=== PATIENT | male | born 1975 | race African-American/Black ===

== ENCOUNTER 2024-07-21 17:37 | Inpatient (IN) | payer BC, OTHER ==
[~2024-07-21] VITALS: Ht 162.6 cm; Wt 103.6 kg
--- NOTE | 2024-07-21 17:54 | ED.PDOC ---
History of Present Illness HPI Comments 49-year-old male with PMHx DM, Seizures, CVA presents with a chief complaint of abdominal pain and dysuria. Patient states that his pain is localized to his suprapubic region, nonradiating, rates his pain a 8/10. Patient mentions that the only urinary symptom he is having is pain upon urination. Patient denies burning, hematuria, or retention. Patient also mentions that he feels a pinch sensation in his testicle. Time Seen by MD: 17:45 Reviewed Notes: Nurses Notes, Medications, Allergies Allergies: Coded Allergies: NO KNOWN ALLERGIES (Unverified , 07/21/24) Information Source: Patient Mode of Arrival: Ambulatory Severity: Moderate Timing: Days Duration: Since onset Prehospital treatment: None Past Medical History PAST MEDICAL HISTORY: CVA, DM, Seizures Surgical History: Denies all surgeries Family History Family History: Reviewed,noncontributory to illness Social History Smoker: Non-Smoker Alcohol: Denies ETOH Use Drugs: Denies Drug Use Lives In: Home Constitutional: denies: chills, diaphoresis, fatigue, fever, malaise, sweats, weakness, others EENTM: denies: blurred vision, double vision, ear bleeding, ear discharge, ear drainage, ear pain, ear ringing, eye pain, eye redness, hearing loss, mouth pain, mouth swelling, nasal discharge, nose bleeding, nose congestion, nose pain, photophobia, tearing, throat pain, throat swelling, voice changes, others Respiratory: denies: cough, hemoptysis, orthopnea, SOB at rest, shortness of breath, SOB with excertion, stridor, wheezing, others Cardiovascular: denies: chest pain, dizzy spells, diaphoresis, Dyspnea on exertion, edema, irregular heart beat, left arm pain, lightheadedness, palpitations, PND, syncope, others Gastrointestinal: reports: abdominal pain; denies: abdomen distended, blood streaked bowels, constipated, diarrhea, dysphagia, difficulty swallowing, hematemesis, melena, nausea, poor appetite, poor fluid intake, rectal bleeding, rectal pain, vomiting, others Genitourinary: reports: dysuria; denies: burning, flank pain, frequency, hematuria, incontinence, penile discharge, penile sore, pain, testicle pain, testicle swelling, urgency, others Neurological: denies: dizziness, fainting, headache, left sided numbness, left sided weakness, numbness, paresthesia, pre-existing deficit, right sided numbness, right sided weakness, seizure, speech problems, tingling, tremors, weakness, others Musculoskeletal: denies: back pain, gout, joint pain, joint swelling, muscle pain, muscle stiffness, neck pain, others Integumetry: denies: bruises, change in color, change in hair/nails, dryness, laceration, lesions, lumps, rash, wounds, others Allergic/Immunocompromised: denies: Difficulty Healing, Frequent Infections, Hives, Itching, others Hematologic/Lymphatic: denies: anemia, blood clots, easy bleeding, easy bruising, swollen glands, others Endocrine: denies: excessive hunger, excessive sweating, excessive thirst, excessive urination, flushing, intolerance to cold, intolerance to heat, unexplained weight gain, unexplained weight loss, others Psychiatric: denies: anxiety, bipolar disorder, depression, hopeless, panic disorder, schizophrenia, sleepless, suicidal, others All Other Systems: Reviewed and Negative Physical Exam General Appearance: Moderate Distress HEENT: Normal ENT Inspection, Pharynx Normal, TMs Normal Neck: Full Range of Motion, Non-Tender, Normal, Normal Inspection Respiratory: Chest Non-Tender, Lungs Clear, No Accessory Muscle Use, No Respiratory Distress, Normal Breath Sounds Cardiovascular: No Edema, No JVD, No Murmur, No Gallop, Normal Peripheral Pulses, Regular Rate/Rhythm Breast Exam: Deferred Gastrointestinal: No Organomegaly, No Pulsatile Mass, Normal Bowel Sounds, Soft, Suprapubic, Tenderness Genitalia: Deferred Pelvic: Deferred Rectal: Deferred Extremities: No calf tenderness, Normal capillary refill, Normal inspection, Normal range of motion, Non-tender, No pedal edema Musculoskeletal : Apperance: Normal Neurologic: Alert, 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 Was a procedure done?: No Differential Dx Considerations may include: Colitis, diverticulitis, UTI X-Ray, Labs, Meds, VS Vital Signs Date Time Temp Pulse Resp B/P (MAP) Pulse Ox O2 Delivery O2 Flow Rate FiO2 07/21/24 17:56 98.3 87 18 136/83 (100) 97 98.3 Lab Test 07/21/24 18:19 07/21/24 17:56 Range/Units White Blood Count 6.0 4.4-10.8 10^3/uL Red Blood Count 5.35 4.5-5.90 10^6/uL Hemoglobin 16.8 13.5-17.5 g/dL Hematocrit 49.8 41.0-53.0 % Mean Corpuscular Volume 93.2 80.0-100.0 fL Mean Corpuscular Hemoglobin 31.4 28.0-32.0 pg Mean Corpuscular Hemoglobin Concent 33.7 32.0-36.0 g/dL Red Cell Distribution Width 15.5 H 11.8-14.3 % Platelet Count 221 140-450 10^3/uL Mean Platelet Volume 7.3 6.9-10.8 fL Neutrophils (%) (Auto) 51.2 37.0-80.0 % Lymphocytes (%) (Auto) 36.9 10.0-50.0 % Monocytes (%) (Auto) 9.3 0.0-12.0 % Eosinophils (%) (Auto) 2.0 0.0-7.0 % Basophils (%) (Auto) 0.6 0.0-2.0 % Neutrophils # (Auto) 3.1 1.6-8.6 10 ^3/uL Lymphocytes # (Auto) 2.2 0.4-5.4 10 ^3/uL Monocytes # (Auto) 0.6 0-1.3 10 ^3/uL Eosinophils # (Auto) 0.1 0-0.8 10 ^3/uL Basophils # (Auto) 0 0-0.2 10 ^3/uL Nucleated Red Blood Cells 0.1 % Sodium Level 141 136-145 mmol/L Potassium Level 4.2 3.5-5.1 mmol/L Chloride Level 108 H 98-107 mmol/L Carbon Dioxide Level 27 20-31 mmol/L Anion Gap 6 5-15 Blood Urea Nitrogen 13 9-23 mg/dL Creatinine 0.92 0.700-1.30 mg/dL Glomerular Filtration Rate Calc 102 >90 mL/min BUN/Creatinine Ratio 14.1 10.0-20.0 Serum Glucose 159 H 74-106 mg/dL Calcium Level 10.0 8.7-10.4 mg/dL Total Bilirubin 0.4 0.2-1.0 mg/dL Aspartate Amino Transferase (AST) 10 L 13-40 U/L Alanine Aminotransferase (ALT) 13 7-40 U/L Alkaline Phosphatase 56 46-116 U/L Total Protein 7.4 5.7-8.2 g/dL Albumin 4.5 3.2-4.8 g/dL Lipase 29 12-53 U/L Urine Color Yellow Yellow Urine Clarity Clear Clear Urine pH 6.0 5.0-9.0 Urine Specific [place] 1.030 1.001-1.035 Urine Protein Negative Negative Urine Ketones Trace Negative Urine Blood Negative Negative /uL Urine Nitrite Negative Negative Urine Bilirubin Negative Negative Urine Urobilinogen 2 H Negative mg/dL Urine Leukocyte Esterase Negative Negative /uL Urine RBC 1 0 - 3 /hpf Urine Microscopic WBC 1 0-3 /HPF Urine Squamous Epithelial Cells None seen <5 /hpf Urine Bacteria None seen None Seen /hpf Urine Mucus Few None Seen Urine Glucose Trace Normal mg/dL Abdomen/Pelvis CT Scan Impression: 1. Mild wall thickening of the distal descending colon and sigmoid colon with adjacent fat stranding, concerning for colitis of infectious or inflammatory etiology. No bowel obstruction. No free air. No regional fluid collection identified to suggest abscess. The patient was started on Flagyl 500 mg IV piggyback The urine test is negative The patient's CBC is within normal limits The chemistry panel is within normal limits The patient was still complaining of pain and was given morphine and Zofran The patient was being admitted Images Reviewed?: Images reviewed and evaluated by me Time of 1ST Reevaluation: 18:15 Reevaluation 1ST: Unchanged Patient Education/Counseling: Diagnosis, Treatment, Prognosis Family Education/Counseling: No Family Present Departure 1 Departure Time of Disposition: 19:13 Impression: Primary Impression: Intractable abdominal pain Additional Impression: Acute colitis Disposition: 09 ADMITTED INPATIENT Admit to: Med Surg Condition: Fair Critical Care Note Critical Care Time?: No Stability Stability form required: Yes Unstable for transfer: ED Physician Assesment (Clinical assesment) Heart Score Heart Score: Heart Score Response (Comments) Value History N/A 0 EKG N/A 0 Age N/A 0 Risk Factors N/A 0 Troponin N/A 0 Total 0 I personally scribed for HELADIO PETERSON MD ([email or web address]) on 07/21/24 at 17:54. Electronically submitted by Edward Duran ([email or web address]). I personally scribed for HELADIO PETERSON MD ([email or web address]) on 07/21/24 at 19:11. Electronically submitted by Edward Duran ([email or web address]). HELADIO PETERSON MD Jul 21, 2024 17:54
[2024-07-21 18:35] LABS: Basophils # (auto) 0 10 ^3/uL (0-0.2); Basophils % (auto) 0.6 % (0.0-2.0); Eosinophils # (auto) 0.1 10 ^3/uL (0-0.8); Hematocrit 49.8 % (41.0-53.0); Hemoglobin 16.8 g/dL (13.5-17.5); Lymphocytes # (auto) 2.2 10 ^3/uL (0.4-5.4); Lymphocytes % (auto) 36.9 % (10.0-50.0); Mean Corpuscular Hemoglobin 31.4 pg (28.0-32.0); Mean Corpuscular Hgb Conc. 33.7 g/dL (32.0-36.0); Mean Corpuscular Volume 93.2 fL (80.0-100.0); Monocytes # (auto) 0.6 10 ^3/uL (0-1.3); Monocytes % (auto) 9.3 % (0.0-12.0); Neutrophils # (auto) 3.1 10 ^3/uL (1.6-8.6); Neutrophils % (auto) 51.2 % (37.0-80.0); Nucleated Red Blood Cells % 0.1 %; Platelet Count (auto) 221 10^3/uL (140-450); Red Blood Cells 5.35 10^6/uL (4.5-5.90); Red Cell Distribution Width 15.5 % (11.8-14.3)
[2024-07-21 18:47] LABS: Alanine Aminotransferase 13 U/L (7-40); Albumin 4.5 g/dL (3.2-4.8); Alkaline Phosphatase 56 U/L (46-116); Anion Gap 6 (5-15); BUN/Creatinine Ratio 14.1 (10.0-20.0); Bilirubin, Total 0.4 mg/dL (0.2-1.0); Blood Urea Nitrogen 13 mg/dL (9-23); Carbon Dioxide 27 mmol/L (20-31); Lipase 29 U/L (12-53); Potassium 4.2 mmol/L (3.5-5.1); Sodium 141 mmol/L (136-145); Total Protein 7.4 g/dL (5.7-8.2)
[2024-07-21 18:48] LABS: Aspartate Aminotransferase 10 U/L (13-40); Chloride 108 mmol/L (98-107); Glucose 159 mg/dL (74-106)
[2024-07-21 18:57] LABS: Urine Bacteria None Seen /hpf (None Seen)
--- NOTE | 2024-07-21 19:01 | DVH ---
Exam: CT CT AB PEL WO CON-NO ORAL OR IV History: pain Comparison Study: None Technique: Multidetector spiral CT of the abdomen was performed from lung bases to pubic symphysis. I maging was performed without IV contrast. Axial, coronal and sagittal multiplanar reformats were obta ined from the axial data set by the technologist. Radiation Dose : 1. Abdomen/Pelvis: CTDIvol 24.8 mGy, DLP 1376.82 mGy*cm. Findings: Evaluation of solid organs is limited due to lack of intravenous contrast use. Lung Bases: No acute or significant lung base finding. Normal heart size. No pleural or pericardial effusion. Liver: The liver is normal in size. No focal lesions. Gallbladder and Biliary Tree: Unremarkable Spleen: Unremarkable Pancreas: The pancreas is grossly normal in appearance. Adrenal Glands: Unremarkable Kidneys: Kidneys are grossly normal without calculi or hydronephrosis. Bladder: Grossly unremarkable for degree of distention. Bowel: Mild wall thickening of the distal descending colon and sigmoid colon with adjacent fat stran ding. The bowel loops are nondilated. The appendix is not visualized; however, no secondary findings of acute appendicitis identified. Peritoneum and Retroperitoneum: No ascites, free air or focal fluid collection. Lymphadenopathy: No lymphadenopathy. Abdominal Wall: Unremarkable. Vasculature: The visualized abdominal aorta is normal in size and caliber. Evaluation of abdominal a nd pelvic vessels is limited due to lack of intravenous contrast. Pelvic Organs: Unremarkable Musculoskeletal: No aggressive focal bony lesions, acute fractures or dislocation. Degenerative fischer es. IMPRESSION: 1. Mild wall thickening of the distal descending colon and sigmoid colon with adjacent fat stranding, concerning for colitis of infectious or inflammatory etiology. No bowel obstruction. No free air. N o regional fluid collection identified to suggest abscess. Radiation optimization: All CT scans at this facility use at least one of these dose optimization gaviota hniques: automated exposure control mA and/or kV adjustment per patient size (includes targeted exam s where dose is matched to clinical indication) or iterative reconstruction.
[2024-07-21 19:02] LABS: Urine Blood Negative /uL (Negative); Urine Clarity Clear (Clear); Urine Color Yellow (Yellow); Urine Mucus FEW (None Seen); Urine Protein, UAD Negative (Negative); Urine Squamous Epithelial Cell None Seen /hpf (<5); Urine Urobilinogen 2 mg/dL (Negative); Urine WBC 1 /HPF (0-3)
[2024-07-21 19:34] VITALS: PULSE 88; RESP 14; O2SAT 97
[2024-07-21] MEDS: metroNIDAZOLE 500MG/100ML 100 ML IV ONE ×2 (19:39→22:28)
[2024-07-21 20:23] VITALS: PULSE 82; RESP 18; O2SAT 95
[2024-07-21] MEDS ORDERED: ONDANSETRON HCL 4 MG/2 ML VIAL IV PRN (20:45)
[2024-07-21] MEDS ORDERED: ACETAMINOPHEN 325 MG TAB PO PRN (20:45)
--- NOTE | 2024-07-21 21:58 | DVHHPRES ---
History of Present Illness Resident Creating Document: CUAUHTEMOC GONZALEZ RESDIENT History of Present Illness This is a 49-year-old male mild intellectual disability, with past medical history of prediabetes, seizure, and CVA came to the hospital due to abdominal pain. Per patient he has an intermittent abdominal pain since six-month which has recently increased. He also reports lower abdominal pain, hesitancy, dysuria and constipation. He denies fever, nausea, vomiting, shortness of breath, diarrhea. PMHx: Mild intellectual disability, prediabetes, seizure (since 16 years old), CVA (per patient he had CVA during with residual left-sided motor deficits), post term (was 10 month old during ) PSHx: After he was not able to tolerate oral intake and underwent abdominal surgery on 3rd day with partial small-bowel resection Family history: Noncontributory Social history: Mild intellectual disability, do not work, independent in daily life activity but the brother helps him. Ex methamphetamine user, smokes marijuana and cigarettes, lives with the brother at home Home medication: Metformin 500 mg, Depakote 500 mg Allergic history: No known allergies Review of Systems Review of Systems General: patient denies fever, fatigue, weaknes, sweating, any recent changes in appetite and weight HEENT: No headaches, visiual changes, hearing loss, tinnitus, nasal congestion and discharge, and sore throat. Cardiovascular: Denies chest pain, palpitations, dyspnea on exertion, orthopnea, or claudication. Respiratory: No cough, and wheezing. Gastrointestinal: Reports abdominal pain, Genitourinary: Reports hesitancy and dysuria Endocrine: No heat or cold intolerance, polydipsia, polyuria, and polyphagia. Neurological: No dizziness, extremity weakness and numbness, tremors, gait disturbance, seizures, and memory impairment. Psychiatric: Denies depression, anxiety,or insomnia. Musculoskeletal: Reports lower back pain Skin: No rashes, itching, skin lesion, changes in hair, nail, skin texture and breast. Hematologic/Lymphatic: Denies easy bruising, bleeding tendencies, or lymph node enlargement. Allergies: Coded Allergies: NO KNOWN ALLERGIES (Unverified , 07/21/24) Exam Vital Signs Vital Signs Date Time Temp Pulse Resp B/P (MAP) Pulse Ox O2 Delivery O2 Flow Rate FiO2 07/21/24 20:23 82 18 95 Room Air* 0 21 07/21/24 20:10 97.4 135/92 (106) 97.4 Exam General Appearance: Alert, Oriented X3, Cooperative, No acute distress HEENT: Atraumatic, PERRLA, EOMI, Mucous membrane moist/pink Respiratory: Clear to auscultation, Normal air movement Cardiovascular: Regular rate, Normal S1, Normal S2, No murmurs, no chest wall tenderness Abdominal: Mild suprapubic tenderness Extremities: Left upper limb power 3/5 Skin: No rashes, No breakdown, No significant lesion Neuro: Normal gait, Normal speech, Strength at 5/5 X4 ext, Normal tone, Sensation intact, Cranial nerves 3-12 NL, Reflexes 2+ Psych/Mental Status: Mental status NL, Mood NL Labs/Xrays Labs Test 07/21/24 18:19 07/21/24 17:56 Range/Units White Blood Count 6.0 4.4-10.8 10^3/uL Red Blood Count 5.35 4.5-5.90 10^6/uL Hemoglobin 16.8 13.5-17.5 g/dL Hematocrit 49.8 41.0-53.0 % Mean Corpuscular Volume 93.2 80.0-100.0 fL Mean Corpuscular Hemoglobin 31.4 28.0-32.0 pg Mean Corpuscular Hemoglobin Concent 33.7 32.0-36.0 g/dL Red Cell Distribution Width 15.5 H 11.8-14.3 % Platelet Count 221 140-450 10^3/uL Mean Platelet Volume 7.3 6.9-10.8 fL Neutrophils (%) (Auto) 51.2 37.0-80.0 % Lymphocytes (%) (Auto) 36.9 10.0-50.0 % Monocytes (%) (Auto) 9.3 0.0-12.0 % Eosinophils (%) (Auto) 2.0 0.0-7.0 % Basophils (%) (Auto) 0.6 0.0-2.0 % Neutrophils # (Auto) 3.1 1.6-8.6 10 ^3/uL Lymphocytes # (Auto) 2.2 0.4-5.4 10 ^3/uL Monocytes # (Auto) 0.6 0-1.3 10 ^3/uL Eosinophils # (Auto) 0.1 0-0.8 10 ^3/uL Basophils # (Auto) 0 0-0.2 10 ^3/uL Nucleated Red Blood Cells 0.1 % Sodium Level 141 136-145 mmol/L Potassium Level 4.2 3.5-5.1 mmol/L Chloride Level 108 H 98-107 mmol/L Carbon Dioxide Level 27 20-31 mmol/L Anion Gap 6 5-15 Blood Urea Nitrogen 13 9-23 mg/dL Creatinine 0.92 0.700-1.30 mg/dL Glomerular Filtration Rate Calc 102 >90 mL/min BUN/Creatinine Ratio 14.1 10.0-20.0 Serum Glucose 159 H 74-106 mg/dL Calcium Level 10.0 8.7-10.4 mg/dL Total Bilirubin 0.4 0.2-1.0 mg/dL Aspartate Amino Transferase (AST) 10 L 13-40 U/L Alanine Aminotransferase (ALT) 13 7-40 U/L Alkaline Phosphatase 56 46-116 U/L Total Protein 7.4 5.7-8.2 g/dL Albumin 4.5 3.2-4.8 g/dL Lipase 29 12-53 U/L Urine Color Yellow Yellow Urine Clarity Clear Clear Urine pH 6.0 5.0-9.0 Urine Specific [place] 1.030 1.001-1.035 Urine Protein Negative Negative Urine Ketones Trace Negative Urine Blood Negative Negative /uL Urine Nitrite Negative Negative Urine Bilirubin Negative Negative Urine Urobilinogen 2 H Negative mg/dL Urine Leukocyte Esterase Negative Negative /uL Urine RBC 1 0 - 3 /hpf Urine Microscopic WBC 1 0-3 /HPF Urine Squamous Epithelial Cells None seen <5 /hpf Urine Bacteria None seen None Seen /hpf Urine Mucus Few None Seen Urine Glucose Trace Normal mg/dL Assessment/Plan Assessment/Plan Colitis Possible urethritis Abdominal CT scan shows, mild wall thickening of the distal descending colon and sigmoid colon with adjacent fat stranding Clear liquid diet Empiric antibiotic, Rocephin and Flagyl Pain control Stool study Prediabetes History of seizure, continue Depakote History of CVA with left-sided residual deficit Obesity, grade 2 Dyslipidemia DIET: Clear liquid the DVT PROPHYLAXIS: Lovenox CODE STATUS: Goal of care for more than 18 minutes, full code DISPOSITION: Med/surge Patient's status and plan discussed with the patient patient's brother through the phone. Case discussed with Dr. Issa. Plan discussed with: Patient, Other (RN) My Orders Orders - CUAUHTEMOC GONZALEZ RESDIESTEBAN Procedure Category Date Status Time Admit ADMIT 07/21/24 Transmitted 20:37 Code Status CODE 07/21/24 Transmitted 20:37 Vital Signs ANJALI 07/21/24 Transmitted 20:37 Review Orders With [facility] 07/21/24 Transmitted Adm.Md 20:37 Acetaminophen Tablet PHA 07/21/24 Transmitted (Tylenol Tablet) 20:45 Notify Md Of Changes [facility] 07/21/24 Transmitted From Base 20:37 Advance Directive ANJALI 07/21/24 Transmitted 20:37 Lipid Panel LAB 07/21/24 Transmitted 20:37 Patient Condition ORDERS 07/21/24 Transmitted 20:37 Allergies ANJALI 07/21/24 Transmitted 20:37 Hydrocodone-Acet PHA 07/21/24 Transmitted 5/325mg Tab ([place] 20:45 Ondansetron Hcl PHA 07/21/24 Transmitted (Zofran) 20:45 Drug Screen LAB 07/21/24 Verified 20:37 Hemoglobin A1c LAB 07/21/24 Verified 20:37 Lovenox 40mg PHA 07/22/24 Verified 10:00 Stat Ekg For Chest [facility] 07/21/24 Verified Pain 20:37 Notify Md Of Changes [facility] 07/21/24 Verified From Base 20:37 Thyroid Stimulating LAB 07/21/24 Transmitted Hormone 20:37 Clear Liq Diet DIET 07/22/24 Verified Breakfast Basic Metabolic Panel LAB 07/22/24 Verified 04:00 Complete Blood Count LAB 07/22/24 Verified 04:00 Stool Wbc LAB 07/21/24 Transmitted 20:37 Metronidazole Ivpb PHA 07/21/24 Verified Flagyl 22:00 Metronidazole Ivpb PHA 07/21/24 Verified Flagyl 20:45 Ceftriaxone Ivpb PHA 07/22/24 Verified Rocephin 09:00 Ceftriaxone Ivpb PHA 07/21/24 Verified Rocephin 20:45 Date of Service: Jul 21, 2024 Billing Provider: DAPHNIE ISSA MD Common Visit Codes: [id number] INP/OBS CARE (HIGH) CUAUHTEMOC GONZALEZ RESDIENT Jul 21, 2024 21:58 DAPHNIE ISSA MD Jul 22, 2024 10:59
[2024-07-21 22:22] LABS: Cholesterol 196 mg/dL (< 200); HDL Cholesterol 48 mg/dL (40-59); LDL Cholesterol 126 mg/dL (< 100); Triglycerides 188 mg/dL (< 150)
[2024-07-21] MEDS: cefTRIAXone 1GM/50ML D5W 50 ML IV ONE (22:28)
[2024-07-21 22:45] LABS: Cannabinoid Screen, Urine Neg (NEGATIVE)
[2024-07-21 22:47] LABS: Amphetamine Screen, Urine Neg (NEGATIVE); Barbiturate Scree,Urine Neg (NEGATIVE); Benzodiazephine Screen, Urine Neg (NEGATIVE); Cocaine Screen, Urine Neg (NEGATIVE); Opiate Scree,Urine Neg (NEGATIVE); Phencyclidine Screen, Urine Neg (NEGATIVE)
[2024-07-21 23:15] LABS: Erythrocyte Sedimentation Rate 1 mm/hr (0-20)
[2024-07-21] MEDS: LACTATED RINGER'S 1,000 ML IV SCH (23:44)
[2024-07-21] MEDS ORDERED: FLUT50SP NAS (23:49)
[2024-07-21] MEDS ORDERED: RISP3TAB44 PO (23:49)
[2024-07-21] MEDS ORDERED: METF-372 PO (23:52)
[2024-07-21] MEDS ORDERED: DIVA1TAB59 PO (23:52)
[2024-07-22] VITALS (7 sets, daily range): BP systolic 95–128; BP diastolic 67–89; PULSE 68–79; RESP 16–18; TEMP 96.7–98.6; O2SAT 92–97
[2024-07-22 02:07] LABS: Lactic Acid w/Reflex 2.2 mmol/L (0.4-2.0)
[2024-07-22] MEDS: SODIUM CHLORIDE 0.9% 1,000 ML IV ONE (02:20)
[2024-07-22] MEDS: metroNIDAZOLE 500MG/100ML 100 ML IV SCH (06:35)
[2024-07-22] MEDS: ENOXAPARIN SOD 40 MG/0.4 ML SYRINGE SC SCH (09:46)
[2024-07-22] MEDS: HYDROcodone-ACET 5/325MG TAB PO PRN (09:46)
[2024-07-22] MEDS: risperiDONE 1 MG TAB PO SCH (09:47)
[2024-07-22] MEDS ORDERED: FLUTICASONE PROP NASAL SPR 0.05 % (50MCG) 16GM EACHNOSTRI SCH (10:00)
[2024-07-22 10:26] LABS: Basophils # (auto) 0 10 ^3/uL (0-0.2); Basophils % (auto) 0.9 % (0.0-2.0); Eosinophils # (auto) 0.2 10 ^3/uL (0-0.8); Eosinophils % (auto) 3.8 % (0.0-7.0); Hematocrit 46.6 % (41.0-53.0); Hemoglobin 15.7 g/dL (13.5-17.5); Lymphocytes # (auto) 2.6 10 ^3/uL (0.4-5.4); Lymphocytes % (auto) 48.7 % (10.0-50.0); Mean Corpuscular Hemoglobin 31.3 pg (28.0-32.0); Mean Corpuscular Hgb Conc. 33.8 g/dL (32.0-36.0); Mean Corpuscular Volume 92.8 fL (80.0-100.0); Monocytes # (auto) 0.4 10 ^3/uL (0-1.3); Monocytes % (auto) 8.1 % (0.0-12.0); Neutrophils % (auto) 38.5 % (37.0-80.0); Nucleated Red Blood Cells % 0.2 %; Platelet Count (auto) 198 10^3/uL (140-450); Red Blood Cells 5.02 10^6/uL (4.5-5.90); Red Cell Distribution Width 15.4 % (11.8-14.3); White Blood Cell 5.3 10^3/uL (4.4-10.8)
[2024-07-22 10:56] LABS: Alanine Aminotransferase 12 U/L (7-40); Albumin 3.9 g/dL (3.2-4.8); Alkaline Phosphatase 48 U/L (46-116); Anion Gap 9 (5-15); BUN/Creatinine Ratio 16.3 (10.0-20.0); Bilirubin, Total 0.4 mg/dL (0.2-1.0); Blood Urea Nitrogen 13 mg/dL (9-23); Carbon Dioxide 25 mmol/L (20-31); Potassium 4.3 mmol/L (3.5-5.1); Sodium 142 mmol/L (136-145); Total Protein 6.4 g/dL (5.7-8.2)
[2024-07-22 11:00] LABS: Aspartate Aminotransferase < 8 U/L (13-40); Chloride 108 mmol/L (98-107); Glucose 117 mg/dL (74-106)
--- NOTE | 2024-07-22 12:29 | DVHPNRES ---
Progress Note Date Seen: Jul 22, 2024 Resident Creating Document: RONALD GUY RESIDENT Has the PT tested + for MRSA If YES, has PT been informed?: No Medical Necessity Reason Pt with a Central, PICC or Fol: No Subjective Review of Systems A 49-year-old male mild intellectual disability, with past medical history of prediabetes, seizure, and CVA came to the hospital due to abdominal pain. Per patient he has an intermittent abdominal pain (diffuse, generalized) since six- month which has recently increased. He also reports lower abdominal pain, hesitancy, dysuria and constipation. He denies fever, nausea, vomiting, shortness of breath, diarrhea. Patient is poor historian PMHx: Mild intellectual disability, prediabetes, seizure (since 16 years old), CVA (per patient he had CVA during with residual left-sided motor deficits), post term (was 10 month old during ) PSHx: After he was not able to tolerate oral intake and underwent abdominal surgery on 3rd day with partial small-bowel resection Family history: Noncontributory Social history: Mild intellectual disability, independent in daily life activity but his brother helps him. Ex methamphetamine user, smokes marijuana and cigarettes, lives with the brother at home Home medication: Metformin 500 mg, Depakote 500 mg Allergic history: No known allergies Objective vital signs Vital Sign Date Time Temp Pulse Resp B/P (MAP) Pulse Ox O2 Delivery O2 Flow Rate FiO2 07/22/24 08:45 98.1 72 16 121/80 (94) 93 98.1 07/22/24 08:15 Room Air* 0 21 Total Intake and Output 07/21/24 07/21/24 07/22/24 15:00 23:00 07:00 Intake Total 100 ml 1150 ml Output Total 700 ml Balance 100 ml 450 ml medications Current Medications Medications Dose Ordered Sig/Pepe Route Start Time Stop Time Status Last Admin Dose Admin Acetaminophen 650 mg Q6HP PRN PO 07/21/24 20:45 Acetaminophen/ Hydrocodone Bitart 1 tab Q4HP PRN PO 07/21/24 20:45 07/22/24 09:46 1 TAB Ondansetron HCl 4 mg Q4HP PRN IV 07/21/24 20:45 Enoxaparin Sodium 40 mg DAILY SC 07/22/24 10:00 07/22/24 09:46 40 MG Metronidazole 100 ml @ 100 mls/hr Q8HR IV 07/22/24 06:00 07/22/24 06:35 100 MLS/HR Ceftriaxone Sodium 50 ml @ 100 mls/hr Q24H IV 07/22/24 21:00 Divalproex Sodium 500 mg BID PO 07/22/24 10:00 07/22/24 09:47 500 MG Lactated Ringer's 1,000 ml @ 125 mls/hr Q8H IV 07/21/24 23:30 07/21/24 23:44 125 MLS/HR Risperidone 3 mg BID PO 07/22/24 10:00 07/22/24 09:47 3 MG Fluticasone Propionate 50 mcg BID EACHNOSTRI 07/22/24 22:00 Examination Exam General Appearance: Alert, Oriented X3, Cooperative, No acute distress HEENT: Atraumatic, PERRLA, EOMI, Mucous membrane moist/pink Respiratory: Clear to auscultation, Normal air movement Cardiovascular: Regular rate, Normal S1, Normal S2, No murmurs, no chest wall tenderness Abdominal: Mild generalized tenderness, no peritoneal signs Extremities: no edema Skin: No rashes, No breakdown, No significant lesion Neuro: Normal gait, Normal speech, Strength at 5/5 X4 ext, Normal tone, Sensation intact, Cranial nerves 3-12 NL, Reflexes 2+ Psych/Mental Status: Mental status NL, Mood NL laboratory and microbiology Laboratory Tests 07/22/24 10:11 Test 07/22/24 10:11 Range/Units Serum Glucose 117 H 74-106 mg/dL Labs and/or images reviewed: Labs reviewed by me, Image(s) reviewed by me Problem List/Assessment/Plan Problem List/Assessment/Plan #Suspected sepsis with lactic acidosis due to colitis #Colitis; possible bacterial #Prediabetes #Seizures disorder #History of CVA with left-sided residual deficit #Obesity, grade 2 #Dyslipidemia #Lactic acidosis #Marijuana and tobacco use disorder Counseled on marijuana and tobacco use cessation for [address] scan shows, mild wall thickening of the distal descending colon and sigmoid colon with adjacent fat stranding Clear liquid diet Empiric antibiotic, Rocephin and Flagyl Pain control Stool studies IV fluids Urine culture Seizure precautions Chest x ray DIET: Clear liquid DVT PROPHYLAXIS: Lovenox CODE STATUS: Goal of care for 20 minutes, full code DISPOSITION: [facility]/surge Case discussed with Dr. Beltrán Plan discussed with: Patient, Other (rn) My Orders My Orders Orders - RONALD GUY RESIDENT Procedure Category Date Status Time Npo Except For ANJALI 07/22/24 In Process Medications 10:21 Clear Liq Diet DIET 07/22/24 Transmitted Lunch Addendum Addendum Addendum I was physically present for the alfred portions of the service provided to patient by THE RESIDENT. I have reviewed the documentation, discussed the case with resident and agree with the resident's documentation except as noted. Also the patient's clinical case was discussed with the patient's nurse. This medical document was created using an electronic medical record system with computerized dictation system. Although this document has been carefully reviewed, there might still be some phonetic and typographical errors. These areas are purely typographical due to imperfections of the software programs, and do not reflect any compromise in the patient's medical care. Late signature. Date of Service: Jul 22, 2024 Billing Provider: FARRAH BELTRÁN MD Common Visit Codes: [id number] INP/OBS CARE(HIGH) Secondary Visit Codes: [id number] CHNG SMOKING >10MIN (Counseled on tobacco and marijuana use cessation for 22 minutes), [id number] CARE PLAN 30 MINUTES (20 minutes) RONALD UGY RESIDENT Jul 22, 2024 12:29 FARRAH BELTRÁN MD Jul 22, 2024 22:13
--- NOTE | 2024-07-22 15:34 | DVH ---
Chest x-ray AP portable CLINICAL INDICATION: Shortness of breath FINDINGS: Heart size is enlarged. No infiltrates or effusions. There is a rotatory levoscoliosis of the spine IMPRESSION: 1. Cardiomegaly. No acute cardiopulmonary pathology
[2024-07-22 18:25] LABS: Urine Bacteria None Seen /hpf (None Seen)
[2024-07-22 18:48] LABS: Urine Blood Negative /uL (Negative); Urine Clarity Clear (Clear); Urine Color Colorless (Yellow); Urine Protein, UAD Negative (Negative); Urine Squamous Epithelial Cell None Seen /hpf (<5); Urine Urobilinogen Normal (Negative); Urine pH 6.5 (5.0-9.0)
[2024-07-22 18:53] LABS: Urine WBC < 1 /HPF (0-3)
[2024-07-22] MEDS: cefTRIAXone 1GM/50ML D5W 50 ML IV SCH (20:26)
[2024-07-22] MEDS: FLUTICASONE PROP NASAL SPR 0.05 % (50MCG) 16GM EACHNOSTRI SCH (21:30)
[2024-07-23 05:00] VITALS: BP 104/66; PULSE 77; RESP 16; TEMP 98; O2SAT 98
[2024-07-23 07:16] LABS: Albumin 3.7 g/dL (3.2-4.8); Anion Gap 9 (5-15); BUN/Creatinine Ratio 11.1 (10.0-20.0); Bilirubin, Total 0.5 mg/dL (0.2-1.0); Calcium 9.1 mg/dL (8.7-10.4); Carbon Dioxide 27 mmol/L (20-31); Chloride 105 mmol/L (98-107); Glucose 87 mg/dL (74-106); Potassium 3.7 mmol/L (3.5-5.1); Sodium 141 mmol/L (136-145); Total Protein 6.3 g/dL (5.7-8.2)
[2024-07-23 07:19] LABS: Alanine Aminotransferase 9 U/L (7-40); Alkaline Phosphatase 42 U/L (46-116); Aspartate Aminotransferase < 8 U/L (13-40); Blood Urea Nitrogen 8 mg/dL (9-23)
[2024-07-23 07:24] LABS: Basophils # (auto) 0 10 ^3/uL (0-0.2); Basophils % (auto) 0.6 % (0.0-2.0); Eosinophils # (auto) 0.2 10 ^3/uL (0-0.8); Eosinophils % (auto) 3.6 % (0.0-7.0); Hematocrit 47.3 % (41.0-53.0); Lymphocytes # (auto) 2.7 10 ^3/uL (0.4-5.4); Mean Corpuscular Hemoglobin 31.2 pg (28.0-32.0); Mean Corpuscular Hgb Conc. 33.8 g/dL (32.0-36.0); Mean Corpuscular Volume 92.3 fL (80.0-100.0); Monocytes # (auto) 0.4 10 ^3/uL (0-1.3); Monocytes % (auto) 7.8 % (0.0-12.0); Neutrophils # (auto) 2.1 10 ^3/uL (1.6-8.6); Nucleated Red Blood Cells % 0.2 %; Platelet Count (auto) 204 10^3/uL (140-450); Red Blood Cells 5.12 10^6/uL (4.5-5.90); Red Cell Distribution Width 15.2 % (11.8-14.3); White Blood Cell 5.4 10^3/uL (4.4-10.8)
[2024-07-23 09:00] VITALS: BP 128/77; PULSE 68; RESP 20; TEMP 98.1; O2SAT 96
--- NOTE | 2024-07-23 11:05 | DVHPNRES ---
Progress Note Date Seen: Jul 23, 2024 Resident Creating Document: RONALD GUY RESIDENT Has the PT tested + for MRSA If YES, has PT been informed?: No Medical Necessity Reason Pt with a Central, PICC or Fol: No Subjective Review of Systems A 49-year-old male mild intellectual disability, with past medical history of prediabetes, seizure, and CVA came to the hospital due to abdominal pain. Per patient he has an intermittent abdominal pain (diffuse, generalized) since six- month which has recently increased. He also reports lower abdominal pain, hesitancy, dysuria and constipation. He denies fever, nausea, vomiting, shortness of breath, diarrhea. Patient is poor historian PMHx: Mild intellectual disability, prediabetes, seizure (since 16 years old), CVA (per patient he had CVA during with residual left-sided motor deficits), post term (was 10 month old during ) PSHx: After he was not able to tolerate oral intake and underwent abdominal surgery on 3rd day with partial small-bowel resection Family history: Noncontributory Social history: Mild intellectual disability, independent in daily life activity but his brother helps him. Ex methamphetamine user, smokes marijuana and cigarettes, lives with the brother at home Home medication: Metformin 500 mg, Depakote 500 mg Allergic history: No known allergies Patient had just one bowel movement yesterday, stool studies came negative for C difficile Objective vital signs Vital Sign Date Time Temp Pulse Resp B/P (MAP) Pulse Ox O2 Delivery O2 Flow Rate FiO2 07/23/24 09:00 98.1 68 20 128/77 (94) 96 98.1 07/22/24 20:00 Room Air* 0 21 Total Intake and Output 07/22/24 07/22/24 07/23/24 15:00 23:00 07:00 Intake Total 100 ml 1050 ml 300 ml Balance 100 ml 1050 ml 300 ml medications Current Medications Medications Dose Ordered Sig/Pepe Route Start Time Stop Time Status Last Admin Dose Admin Acetaminophen 650 mg Q6HP PRN PO 07/21/24 20:45 Acetaminophen/ Hydrocodone Bitart 1 tab Q4HP PRN PO 07/21/24 20:45 07/22/24 23:58 1 TAB Ondansetron HCl 4 mg Q4HP PRN IV 07/21/24 20:45 Enoxaparin Sodium 40 mg DAILY SC 07/22/24 10:00 07/22/24 09:46 40 MG Metronidazole 100 ml @ 100 mls/hr Q8HR IV 07/22/24 06:00 07/23/24 05:30 100 MLS/HR Ceftriaxone Sodium 50 ml @ 100 mls/hr Q24H IV 07/22/24 21:00 07/22/24 20:26 100 MLS/HR Divalproex Sodium 500 mg BID PO 07/22/24 10:00 07/22/24 21:29 500 MG Lactated Ringer's 1,000 ml @ 125 mls/hr Q8H IV 07/21/24 23:30 07/21/24 23:44 125 MLS/HR Risperidone 3 mg BID PO 07/22/24 10:00 07/22/24 21:28 3 MG Fluticasone Propionate 50 mcg BID EACHNOSTRI 07/22/24 22:00 07/22/24 21:30 50 MCG Examination General Appearance: Alert, Oriented X3, Cooperative, No acute distress HEENT: Atraumatic, PERRLA, EOMI, Mucous membrane moist/pink Respiratory: Clear to auscultation, Normal air movement Cardiovascular: Regular rate, Normal S1, Normal S2, No murmurs, no chest wall tenderness Abdominal: Mild generalized tenderness, no peritoneal signs Extremities: no edema Skin: No rashes, No breakdown, No significant lesion Neuro: Normal gait, Normal speech, Strength at 5/5 X4 ext, Normal tone, Sensation intact, Cranial nerves 3-12 NL, Reflexes 2+ Psych/Mental Status: Mental status NL, Mood NL laboratory and microbiology Laboratory Tests 07/23/24 05:38 Test 07/23/24 05:38 Range/Units Serum Glucose 87 74-106 mg/dL Microbiology Date/Time Source Procedure Growth Status 07/21/24 23:59 Blood Blood Culture - Preliminary NO GROWTH AFTER 24 HOURS OF INCUBATION. Resulted Labs and/or images reviewed: Labs reviewed by me, Image(s) reviewed by me Problem List/Assessment/Plan Problem List/Assessment/Plan #Suspected sepsis with lactic acidosis due to colitis resolving #Colitis; possible bacterial #Prediabetes #Seizures disorder #History of CVA with left-sided residual deficit #Obesity, grade 2 #Dyslipidemia #Lactic acidosis #Marijuana and tobacco use disorder Counseled on marijuana and tobacco use cessation Abdominal CT scan shows, mild wall thickening of the distal descending colon and sigmoid colon with adjacent fat stranding Advance diet Empiric antibiotic, Rocephin and Flagyl Pain control Stool studies: negative for C diff DC IV fluids Urine culture Seizure precautions Chest x ray: cardiomegaly DIET: Clear liquid DVT PROPHYLAXIS: Lovenox CODE STATUS: Full code DISPOSITION: Med/surg Possible discharge tomorrow Case discussed with Dr. Beltrán Plan discussed with: Patient, Other (rn) My Orders My Orders Orders - RONALD GUY Procedure Category Date Status Time Urine Bacterial NADIYA 07/22/24 In Process Culture 19:21 Seizure Precautions ANJALI 07/22/[address] 13:22 Chest Xray 1 View XY 07/22/24 Resulted 13:23 Addendum Addendum Addendum I was physically present for the alfred portions of the service provided to patient by THE RESIDENT. I have reviewed the documentation, discussed the case with resident and agree with the resident's documentation except as noted. Also the patient's clinical case was discussed with the patient's nurse. This medical document was created using an electronic medical record system with computerized dictation system. Although this document has been carefully reviewed, there might still be some phonetic and typographical errors. These areas are purely typographical due to imperfections of the software programs, and do not reflect any compromise in the patient's medical care. Late signature. Date of Service: Jul 23, 2024 Billing Provider: FARRAH BELTRÁN MD Common Visit Codes: [id number] INP/OBS CARE(HIGH) RONALD GUY RESIDENT Jul 23, 2024 11:05 FARRAH BELTRÁN MD Jul 23, 2024 19:29
[2024-07-23 13:00] VITALS: BP 121/79; PULSE 77; RESP 20; TEMP 98; O2SAT 97
[2024-07-23 16:46] VITALS: BP 134/76; PULSE 76; RESP 16; TEMP 97.5; O2SAT 93
[2024-07-23 21:00] VITALS: BP 118/77; PULSE 82; RESP 17; TEMP 98.4; O2SAT 96
[2024-07-24 01:00] VITALS: BP 121/80; PULSE 76; RESP 18; TEMP 98.3; O2SAT 97
[2024-07-24 05:00] VITALS: BP 122/76; PULSE 57; RESP 18; TEMP 98.1; O2SAT 96
[2024-07-24 07:29] LABS: Basophils # (auto) 0 10 ^3/uL (0-0.2); Basophils % (auto) 0.3 % (0.0-2.0); Eosinophils # (auto) 0.1 10 ^3/uL (0-0.8); Eosinophils % (auto) 2.2 % (0.0-7.0); Hematocrit 46.6 % (41.0-53.0); Hemoglobin 15.9 g/dL (13.5-17.5); Lymphocytes # (auto) 2.7 10 ^3/uL (0.4-5.4); Lymphocytes % (auto) 46.7 % (10.0-50.0); Mean Corpuscular Hemoglobin 31.8 pg (28.0-32.0); Mean Corpuscular Hgb Conc. 34.2 g/dL (32.0-36.0); Mean Corpuscular Volume 92.8 fL (80.0-100.0); Monocytes # (auto) 0.6 10 ^3/uL (0-1.3); Monocytes % (auto) 10.5 % (0.0-12.0); Neutrophils # (auto) 2.3 10 ^3/uL (1.6-8.6); Neutrophils % (auto) 40.3 % (37.0-80.0); Nucleated Red Blood Cells % 0.1 %; Platelet Count (auto) 209 10^3/uL (140-450); Red Blood Cells 5.02 10^6/uL (4.5-5.90); Red Cell Distribution Width 14.8 % (11.8-14.3); White Blood Cell 5.7 10^3/uL (4.4-10.8)
[2024-07-24 07:43] LABS: Alanine Aminotransferase 11 U/L (7-40); Albumin 3.9 g/dL (3.2-4.8); Anion Gap 10 (5-15); BUN/Creatinine Ratio 9.2 (10.0-20.0); Calcium 9.1 mg/dL (8.7-10.4); Carbon Dioxide 26 mmol/L (20-31); Chloride 106 mmol/L (98-107); Potassium 3.8 mmol/L (3.5-5.1); Sodium 142 mmol/L (136-145); Total Protein 6.4 g/dL (5.7-8.2)
[2024-07-24 07:44] LABS: Bilirubin, Total 0.5 mg/dL (0.2-1.0)
[2024-07-24 07:48] LABS: Alkaline Phosphatase 45 U/L (46-116); Aspartate Aminotransferase 10 U/L (13-40); Blood Urea Nitrogen 7 mg/dL (9-23); Glucose 108 mg/dL (74-106)
[2024-07-24 08:33] VITALS: BP 98/64; PULSE 91; RESP 20; TEMP 98.3; O2SAT 94
--- NOTE | 2024-07-24 09:48 | DVHDSRES ---
Discharge Summary Date of Admission Resident Creating Document: RONALD GUY RESIDENT Jul 21, 2024 at 20:37 Date of Discharge: Jul 24, 2024 Admitting Diagnosis Worsening diffuse abdominal pain Labs/Diagnostic Data: Laboratory Results Test 07/24/24 06:57 07/22/24 20:14 07/22/24 18:23 07/22/24 10:11 White Blood Count 5.7 10^3/uL (4.4-10.8) Red Blood Count 5.02 10^6/uL (4.5-5.90) Hemoglobin 15.9 g/dL (13.5-17.5) Hematocrit 46.6 % (41.0-53.0) Mean Corpuscular Volume 92.8 fL (80.0-100.0) Mean Corpuscular Hemoglobin 31.8 pg (28.0-32.0) Mean Corpuscular Hemoglobin Concent 34.2 g/dL (32.0-36.0) Red Cell Distribution Width 14.8 % (11.8-14.3) Platelet Count 209 10^3/uL (140-450) Mean Platelet Volume 7.1 fL (6.9-10.8) Neutrophils (%) (Auto) 40.3 % (37.0-80.0) Lymphocytes (%) (Auto) 46.7 % (10.0-50.0) Monocytes (%) (Auto) 10.5 % (0.0-12.0) Eosinophils (%) (Auto) 2.2 % (0.0-7.0) Basophils (%) (Auto) 0.3 % (0.0-2.0) Neutrophils # (Auto) 2.3 10 ^3/uL (1.6-8.6) Lymphocytes # (Auto) 2.7 10 ^3/uL (0.4-5.4) Monocytes # (Auto) 0.6 10 ^3/uL (0-1.3) Eosinophils # (Auto) 0.1 10 ^3/uL (0-0.8) Basophils # (Auto) 0 10 ^3/uL (0-0.2) Nucleated Red Blood Cells 0.1 % Sodium Level 142 mmol/L (136-145) Potassium Level 3.8 mmol/L (3.5-5.1) Chloride Level 106 mmol/L (98-107) Carbon Dioxide Level 26 mmol/L (20-31) Anion Gap 10 (5-15) Blood Urea Nitrogen 7 mg/dL (9-23) Creatinine 0.76 mg/dL (0.700-1.30) Glomerular Filtration Rate Calc 110 mL/min (>90) BUN/Creatinine Ratio 9.2 (10.0-20.0) Serum Glucose 108 mg/dL (74-106) Calcium Level 9.1 mg/dL (8.7-10.4) Total Bilirubin 0.5 mg/dL (0.2-1.0) Aspartate Amino Transferase (AST) 10 U/L (13-40) Alanine Aminotransferase (ALT) 11 U/L (7-40) Alkaline Phosphatase 45 U/L (46-116) Total Protein 6.4 g/dL (5.7-8.2) Albumin 3.9 g/dL (3.2-4.8) Stool for White Cells None seen Urine Color Colorless (Yellow) Urine Clarity Clear (Clear) Urine pH 6.5 (5.0-9.0) Urine Specific [place] 1.010 (1.001-1.035) Urine Protein Negative (Negative) Urine Ketones Negative (Negative) Urine Blood Negative /uL (Negative) Urine Nitrite Negative (Negative) Urine Bilirubin Negative (Negative) Urine Urobilinogen Normal mg/dL (Negative) Urine Leukocyte Esterase Negative /uL (Negative) Urine RBC <1 /hpf (0 - 3) Urine Microscopic WBC < 1 /HPF (0-3) Urine Squamous Epithelial Cells None seen /hpf (<5) Urine Bacteria None seen /hpf (None Seen) Urine Glucose Normal mg/dL (Normal) C-Reactive Protein High Sensitivity 0.10 mg/dL (<1.0) Test 07/22/24 02:30 07/21/24 18:19 07/21/24 17:56 Lactic Acid Level 1.7 mmol/L (0.4-2.0) Erythrocyte Sedimentation Rate 1 mm/hr (0-20) Hemoglobin A1c 5.8 % A1C (<5.7) Triglycerides Level 188 mg/dL (< 150) Cholesterol Level 196 mg/dL (< 200) LDL Cholesterol 126 mg/dL (< 100) HDL Cholesterol 48 mg/dL (40-59) Lipase 29 U/L (12-53) Thyroid Stimulating Hormone (TSH) 0.67 uIU/mL (0.55-4.78) Urine Mucus Few (None Seen) Urine Opiates Screen Neg (NEGATIVE) Urine Fentanyl Screen Neg (NEGATIVE) Urine Barbiturates Screen Neg (NEGATIVE) Urine Phencyclidine Screen Neg (NEGATIVE) Urine Amphetamines Screen Neg (NEGATIVE) Urine Benzodiazepines Screen Neg (NEGATIVE) Urine Cocaine Screen Neg (NEGATIVE) Urine Cannabinoids Screen Neg (NEGATIVE) Other Laboratory Tests 07/24/24 06:57 Brief Hx & Hospital Course: A 49-year-old male with a history of mild intellectual disability, prediabetes, seizure disorder (since age 16), and remote CVA with residual deficits presented with worsening diffuse abdominal pain over the past six months, associated with constipation, hesitancy, and dysuria. He denied fever, nausea, vomiting, or shortness of breath. CT imaging showed colitis with mild wall thickening in the distal descending and sigmoid colon with fat stranding. Stool studies were negative for C. difficile. Labs revealed lactic acidosis, and he was started on empiric antibiotics with Rocephin and Flagyl for suspected bacterial colitis. His abdominal pain improved with supportive treatment including IV fluids, bowel rest, and pain control. During hospitalization, he remained hemodynamically stable, tolerating a clear liquid diet. Lactic acidosis resolved, and stool studies were negative. Urine culture was sent due to urinary complaints. Chest X-ray showed cardiomegaly. He was counseled on cessation of marijuana and tobacco use. He was maintained on home medications (Metformin, Depakote), and seizures remained controlled. He was on seizure precautions . Given clinical improvement, he was deemed stable for discharge to home with his brother, with outpatient follow-up and instructions to complete his antibiotic course (oral cipro and metronidazole) Physical examination on the day of discharge: General Appearance: Alert, Oriented X3, Cooperative, No acute distress HEENT: Atraumatic, PERRLA, EOMI, Mucous membrane moist/pink Respiratory: Clear to auscultation, Normal air movement Cardiovascular: Regular rate, Normal S1, Normal S2, No murmurs, no chest wall tenderness Abdominal: soft Extremities: no edema Skin: No rashes, No breakdown, No significant lesion Neuro: Normal gait, Normal speech, Strength at 5/5 X4 ext, Normal tone, Sensation intact, Cranial nerves 3-12 NL, Reflexes 2+ Psych/Mental Status: Mental status NL, Mood NL Case discussed with Dr. Beltrán Operations or Procedures Exam: CT CT AB PEL WO CON-NO ORAL OR IV History: pain Comparison Study: None Technique: Multidetector spiral CT of the abdomen was performed from lung bases to pubic symphysis. Imaging was performed without IV contrast. Axial, coronal and sagittal multiplanar reformats were obtained from the axial data set by the technologist. Radiation Dose : 1. Abdomen/Pelvis: CTDIvol 24.8 mGy, DLP 1376.82 mGy*cm. Findings: Evaluation of solid organs is limited due to lack of intravenous contrast use. Lung Bases: No acute or significant lung base finding. Normal heart size. No pleural or pericardial effusion. Liver: The liver is normal in size. No focal lesions. Gallbladder and Biliary Tree: Unremarkable Spleen: Unremarkable Pancreas: The pancreas is grossly normal in appearance. Adrenal Glands: Unremarkable Kidneys: Kidneys are grossly normal without calculi or hydronephrosis. Bladder: Grossly unremarkable for degree of distention. Bowel: Mild wall thickening of the distal descending colon and sigmoid colon with adjacent fat stranding. The bowel loops are nondilated. The appendix is not visualized; however, no secondary findings of acute appendicitis identified. Peritoneum and Retroperitoneum: No ascites, free air or focal fluid collection. Lymphadenopathy: No lymphadenopathy. Abdominal Wall: Unremarkable. Vasculature: The visualized abdominal aorta is normal in size and caliber. Evaluation of abdominal and pelvic vessels is limited due to lack of intravenous contrast. Pelvic Organs: Unremarkable Musculoskeletal: No aggressive focal bony lesions, acute fractures or dislocation. Degenerative changes. IMPRESSION: 1. Mild wall thickening of the distal descending colon and sigmoid colon with adjacent fat stranding, concerning for colitis of infectious or inflammatory etiology. No bowel obstruction. No free air. No regional fluid collection identified to suggest abscess. Condition at Discharge: Stable Final Diagnosis/Problems List #Suspected sepsis with lactic acidosis due to colitis resolving #Colitis; possible bacterial #Prediabetes #Seizures disorder #History of CVA with left-sided residual deficit #Obesity, grade 2 #Dyslipidemia #Lactic acidosis #Marijuana and tobacco use disorder Discharge Disposition: Home Discharge Instruct/Medications Diet: See Comment Diet comment: liquid and soft diet for 5 days Activity: No Restrictions, As Tolerated Follow Up/Referral: Discharge clinic within one week or primary care provider within one week Medications: As per EMR Discharge Statement: "Patient was advised to return to the ER or call 911 if any headaches, dizziness, shortness of breath, chest pain, abdominal pain, bleeding, fevers, or worsening of medical condition. Patient was counseled about treatment plan, medications, possible side effects, patientverbalized understanding. All questions were answered to the best of my ability. This discharge took greater then 30 minutes in planning, reviewing documentation, counseling the patient, and discussing with other team members." ASSESSMENT ASSESSMENT Assessment Addendum Addendum Addendum I was physically present for the alfred portions of the service provided to patient by THE RESIDENT. I have reviewed the documentation, discussed the case with resident and agree with the resident's documentation except as noted. Also the patient's clinical case was discussed with the patient's nurse. This medical document was created using an electronic medical record system with computerized dictation system. Although this document has been carefully reviewed, there might still be some phonetic and typographical errors. These areas are purely typographical due to imperfections of the software programs, and do not reflect any compromise in the patient's medical care. Late signature. Date of Service: Jul 24, 2024 Billing Provider: FARRAH BELTRÁN MD Common Visit Codes: 02490-UFB/OBS DISCH DAY >30min RONALD GUY RESIDENT Jul 24, 2024 09:48 FARRAH BELTRÁN MD Jul 25, 2024 06:12
[2024-07-24 10:26] VITALS: BP 98/64; PULSE 91; RESP 20; TEMP 98.3; O2SAT 94
[2024-07-24] MEDS ORDERED: METR-344 PO (21:44)
[2024-07-24] MEDS ORDERED: CIPR-173 PO (21:44)
[2024-07-24] MEDS ORDERED: ACET-1882 PO (21:44)
== END 2024-07-24 10:54 | disposition home or self-care (01) | DRG 872 ==
LOC: ER 17:37 → OVERFLOW 20:37 → CENTRAL 07-22 06:10
PROVIDERS: ADMIT Internal Medicine; ATTEND Internal Medicine
DX: A41.9 Sepsis, unspecified organism (principal); E87.20 Acidosis, unspecified; A04.9 Bacterial intestinal infection, unspecified; K59.00 Constipation, unspecified; E78.5 Hyperlipidemia, unspecified; R73.03 Prediabetes; G40.909 Epilepsy, unspecified, not intractable, without status epilepticus; E66.812 Obesity, class 2; F12.10 Cannabis abuse, uncomplicated; Z68.37 Body mass index [BMI] 37.0-37.9, adult; Z86.73 Personal history of transient ischemic attack (TIA), and cerebral infarction without residual deficits; Z79.84 Long term (current) use of oral hypoglycemic drugs; Z79.899 Other long term (current) drug therapy
CPT/HCPCS: 36415; 71045; 74176; 80053; 80061; 80307; 81001; 83036; 83605; 83690; 84443; 85025; 85048; 85652; 86141; 87040; 87045; 87086; 87427; 87493; 96365; G0378; J3490